=== PATIENT | female | born 1935 | race Caucasian/White ===

== ENCOUNTER 2022-01-02 15:22 | Emergency (ER) | payer BC ==
[~2022-01-02] VITALS: Ht 152.4 cm; Wt 47.6 kg
[2022-01-02 16:06] VITALS: BP_SYST 126
--- NOTE | 2022-01-02 17:30 | NUR ---
Pt A&Ox3, pt presents to ER with foreign object, per patient she swallowed a dental piece during dental procedure, VSS. skin pink and warm, cap refill <3.
--- NOTE | 2022-01-02 18:00 | NUR ---
Dr Rich evaluating patient at bedside
--- NOTE | 2022-01-02 19:30 | NUR ---
DR. LEMUS SPEAKING TO PATIENT REGARDING DISCHARGE.
--- NOTE | 2022-01-02 19:38 | NUR ---
Patient given written and verbal discharge instructions and verbalizes understanding. ER MD discussed with patient the results and treatment provided. Patient in stable condition. ID arm band removed. IV catheter removed intact and dressing applied, no active bleeding. Rx of N/A given. Patient educated on pain management and to follow up with PMD. Pain Scale . Opportunity for questions provided and answered. Medication side effect fact sheet provided.
== END 2022-01-02 19:38 | disposition home or self-care (01) ==
LOC: SED 15:22
DX: T18.2XXA Foreign body in stomach, initial encounter (principal); I10 Essential (primary) hypertension; Z88.1 Allergy status to other antibiotic agents; Z88.2 Allergy status to sulfonamides; Z88.4 Allergy status to anesthetic agent; Z88.5 Allergy status to narcotic agent; Z88.7 Allergy status to serum and vaccine; Z88.8 Allergy status to other drugs, medicaments and biological substances; Z91.048 Other nonmedicinal substance allergy status; X58.XXXA Exposure to other specified factors, initial encounter; Y93.89 Activity, other specified; Y92.89 Other specified places as the place of occurrence of the external cause; Y99.8 Other external cause status
CPT/HCPCS: 70360-TC; 71045; 76376; 99284